=== PATIENT | female | born 1935 | race Caucasian/White ===

== ENCOUNTER 2023-08-10 11:19 | Emergency (ER) | payer MEDICARE, OTHER, SELFPAY ==
[2023-08-10] VITALS (11 sets, daily range): BP systolic 110–139; BP diastolic 68–90; PULSE 71–85; RESP 14–34; TEMP 36.7; O2SAT 95–96
--- NOTE | 2023-08-10 11:35 | DI.RAD.S_ITS ---
PROCEDURE: XR CHEST 1V INDICATIONS: FREQUENT FALLS TECHNIQUE: One view of the chest was acquired. COMPARISON: [facility], CR, XR CHEST 1 VIEW, 07/25/2023, 14:30. FINDINGS: Surgical changes and devices: None. Lungs and pleura: Lungs are clear. Chronic emphysematous changes are seen. No pleural effusions or pneumothorax. Mediastinum: Tortuous thoracic aorta is seen. Heart size is enlarged. Bones and chest wall: Old healed right posterior lateral mid to lower rib fractures are again seen. No suspicious bony lesions. Overlying soft tissues appear unremarkable. IMPRESSION: No acute cardiopulmonary pathology. Dictated by: Suresh Cole M.D. on 08/10/2023 at 12:35 Approved by: Suresh Cole M.D. on 08/10/2023 at 12:38
--- NOTE | 2023-08-10 11:35 | DI.CT.S_ITS ---
PROCEDURE: CT CERVICAL SPINE WO CON INDICATIONS: FREQUENT FALLS TECHNIQUE: Noncontrast 3 mm thick sections acquired from the skull base to the T4 level. Sagittal and coronal reformats were then constructed. For radiation dose reduction, the following was used: automated exposure control, adjustment of mA and/or kV according to patient size. COMPARISON: [facility], CT, CT CERVICAL SPINE WITHOUT CONTRAST, 02/23/2022, 15:27. [facility], CT, CT CERVICAL SPINE WITHOUT CONTRAST, 02/25/2022, 16:45. FINDINGS: Image quality: Diagnostic. Patient motion is noted. Bones: Prior posterior fusion of cervical spine at C1 through C3 levels are seen. Healed old on toy fracture is seen with chronic appearing deformity. No gross hardware loosening or failure. No acute fracture or dislocation. Loss of disc height, degenerative endplate changes and bilateral uncovertebral hypertrophic changes are noted throughout cervical spine. Dorsal disc osteophyte complex formation at C3-4, C5-6 and C6-7 levels are seen causing [id number] central canal stenosis and mild bilateral neural foraminal narrowing. Partial bony fusion at C4-5 level is seen. Visualized superior ribs are intact. Soft tissues: Prevertebral soft tissues are normal in thickness. No paravertebral hematomas. No apical pneumothoraces. IMPRESSION: 1. No acute cervical spine fracture or dislocation. 2. Prior posterior fusion at C1 through C3 levels. No gross hardware loosening or failure. 3. Old healed odontoid fracture. Degenerative disc disease throughout cervical spine as above. Dictated by: Sruesh Cole M.D. on 08/10/2023 at 12:28 Approved by: Suresh Cole M.D. on 08/10/2023 at 12:31
--- NOTE | 2023-08-10 11:35 | DI.CT.S_ITS ---
PROCEDURE: CT HEAD/BRAIN WO CON INDICATIONS: FREQUENT FALLS TECHNIQUE: Noncontrast 4.5 mm thick angled axial sections acquired from the foramen magnum to the vertex, with coronal and sagittal reformats. For radiation dose reduction, the following was used: automated exposure control, adjustment of mA and/or kV according to patient size. COMPARISON: [facility], CT, CT HEAD WITHOUT CONTRAST, 02/23/2022, 15:27. [facility], CT, CT HEAD WITHOUT CONTRAST, 07/25/2023, 17:12. FINDINGS: Image quality: Diagnostic. CSF spaces: Basal cisterns are patent. No extra-axial fluid collections. The ventricles are symmetric in size and shape. Brain: No intracranial bleeds or masses. There is cerebral volume loss for age, with resultant ventricular and sulcal prominence. There are periventricular and deep white matter chronic small vessel ischemic changes. There is intracranial internal carotid artery atherosclerosis. Skull and face: Calvarium and visualized facial bones appear intact, without suspicious lesions. Sinuses: Visualized sinuses and mastoids are clear. IMPRESSION: 1. No acute intracranial pathology. No significant changes from previous study. Dictated by: Suresh Cole M.D. on 08/10/2023 at 12:32 Approved by: Suresh Cole M.D. on 08/10/2023 at 12:35
--- NOTE | 2023-08-10 11:37 | ED.BACK ---
HPI - Back Pain/Injury General Chief Complaint: Back Pain/Injury Stated Complaint: Fall T-7, Back Pain Time Seen by Provider: 08/10/23 11:20 Source: family and EMS History of Present Illness HPI Narrative: 88-year-old female with history of Parkinson's presents from home by EMS for medical evaluation. 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 Granddaughter states that patient was had a general decline in her medical status over the last several weeks. She was fallen at least once at home due to her deconditioning. She was apparently reporting pain to her care staff prior to calling EMS, but granddaughter states that patient was overall very stubborn and resistant to seeking medical care. Patient denying any complaints on my evaluation. When asked if she has any pain she states in her arm where the IV is. Related Data Home Medications Medication Instructions Recorded Confirmed carbidopa ER 23.75 mg-levodopa 95 ##0 02/15/17 mg capsule,extended release (Rytary) gabapentin 300 mg capsule 300 mg PO ##0 02/15/17 (Neurontin) Previous Rx's Medication Instructions Recorded estradiol 0.01% (0.1 mg/gram) 0 vaginal SEE INSTRUCTIONS #1 tube 02/15/17 vaginal cream (Estrace) [CMP ESTRIOL 0.05%] 0.5 gm vaginal SEE INSTRUCTIONS 03/14/17 ##30 sulfamethoxazole 800 1 tab PO Q12H #14 tabs 08/10/23 mg-trimethoprim 160 mg tablet Allergies Allergy/AdvReac Type Severity Reaction Status Date / Time alendronate sodium Allergy Unknown Verified 08/10/23 11:25 [From FOSAMAX] morphine Allergy Verified 08/10/23 11:25 Patient History Surgical History (Updated 06/26/17 @ 05:34 by Conversion Provider) History of hip replacement Family History (Updated 10/07/15 @ 00:00 by Conversion Provider) Child Age: 63 Healthy adult Child Age: 64 Healthy adult Sister Age: 91 Circulation problem Exam Initial Vital Signs Initial Vital Signs: Vital Signs Temperature 98.0 F 08/10/23 11:20 Pulse Rate 77 08/10/23 11:20 Respiratory Rate 14 08/10/23 11:20 Blood Pressure 119/77 08/10/23 11:20 Pulse Oximetry 96 08/10/23 11:20 Oxygen Delivery Method Room Air 08/10/23 11:20 Const: Awake, alert, frail Cardiac: regular rate, regular rhythm RESP: unlabored, clear bilaterally GI: Soft, nontender, nondistended MSK: Atraumatic, full range of motion, pulses equal Skin: Warm, Dry, intact, no rashes Neuro: AO x2, CN II-XII grossly intact, moves all extremities Course Orders Ordered: Discontinued Medications Trimethoprim/Sulfamethoxazole (Trimeth/Sulfa 160/800 (Ds) Tablet) 1 tab PO NOW ONE Stop: 08/10/23 15:20 Last Admin: 08/10/23 15:26 Dose: 1 tab Documented By: MECHELLE Vital Signs Vital signs: Vital Signs - 8 hr 08/10/23 11:20 08/10/23 11:24 08/10/23 11:24 Temperature 98.0 F Pulse Rate 77 78 Respiratory Rate 14 Blood Pressure 119/77 119/77 Pulse Oximetry 96 96 Oxygen Delivery Method Room Air 08/10/23 11:30 08/10/23 12:02 08/10/23 12:30 Temperature Pulse Rate 76 71 79 Respiratory Rate 20 23 Blood Pressure Pulse Oximetry 95 96 95 Oxygen Delivery Method 08/10/23 12:56 08/10/23 12:56 08/10/23 13:00 Temperature Pulse Rate 74 79 Respiratory Rate 28 H Blood Pressure 139/83 Pulse Oximetry 96 95 Oxygen Delivery Method 08/10/23 13:01 08/10/23 13:01 08/10/23 13:30 Temperature Pulse Rate 79 78 Respiratory Rate 20 34 H Blood Pressure 134/90 Pulse Oximetry 96 96 Oxygen Delivery Method Room Air MDM - Back Pain/Injury Differential Diagnosis Differential diagnosis: Likely lumbar radiculopathy, sciatica and strain of lumbar region Lab Data 08/10/23 11:36 08/10/23 11:36 Labs: Lab Results 08/10/23 08/10/23 Range/Units 11:36 14:44 WBC 9.2 (4.5-11.0) X10^3/uL RBC 4.06 (4.0-5.2) X10^6/uL Hgb 12.1 (12.0-16.0) g/dL Hct 36.7 (36-46) % MCV 90.6 (80-100) fL MCH 29.8 (26-34) PG MCHC 32.9 (30-36) % RDW 14.0 (11.6-14.8) % Plt Count 416 H (150-400) X10^3/uL Neut % (Auto) 72.5 (50-75) % Lymph % (Auto) 14.1 L (25-40) % Garrett % (Auto) 11.5 (3-14) % Eos % (Auto) 1.3 L (2-4) % Baso % (Auto) 0.6 (0-2) % Neut # (Auto) 6700 (7841-3944) /uL Lymph # (Auto) 1300 (6175-9133) /uL Garrett # (Auto) 1100 H (0-900) /uL Eos # (Auto) 100 (0-450) /uL Baso # (Auto) 100 (0-100) /uL Sodium 136 L (137-145) mmol/L Potassium 4.9 (3.4-5.1) mmol/L Chloride 106 (98-107) mmol/L Carbon Dioxide 26 (22-32) mmol/L BUN 26 H (7-17) mg/dL Creatinine 0.45 L (0.52-1.04) mg/dL Estimated GFR > 60 (>60) mL/min BUN/Creatinine Ratio 57.8 H (6-22) Glucose 89 (80-110) mg/dL Lactate 1.4 (0.7-2.1) mmol/L Calcium 8.7 (8.4-10.2) mg/dL Total Bilirubin 0.9 (0.2-1.3) mg/dL AST 19 (14-36) IU/L ALT 5 (<35) IU/L Alkaline Phosphatase 90 (38-126) U/L Total Protein 6.8 (6.3-8.2) g/dL Albumin 3.8 (3.5-5.0) g/dL Globulin 3.0 (1.7-4.1) g/dL Albumin/Globulin Ratio 1.3 (1.0-2.8) Urine Color Yellow Urine Appearance Clear Urine pH 6.5 (4.5-8.0) Ur Specific [place] 1.020 (1.000-1.035) Urine Protein Trace H (Negative) Urine Glucose (UA) Negative (Negative) g/dL Urine Ketones Trace H (NEGATIVE) Urine Occult Blood Negative (Negative) Urine Nitrate Positive H (Negative) Urine Bilirubin Negative (NEGATIVE) Urine Urobilinogen 0.2 (0.2) E.U./dL Ur Leukocyte Esterase Trace H (NEGATIVE) Urine RBC 0-1/hpf (0-5/HPF) Urine WBC 5-10/hpf H (0-5/HPF) Ur Squamous Epith Cells 0-1 /hpf (0-5/HPF) Urine Bacteria Many (>30) H (None) Ur Culture Indicated? Specimen cultured Vol Urine Centrifuged 10ml (spun) Imaging Data CT - cervical spine: Radiologist's Impression: PROCEDURE: CT CERVICAL SPINE WO CON INDICATIONS: FREQUENT FALLS TECHNIQUE: Noncontrast 3 mm thick sections acquired from the skull base to the T4 level. Sagittal and coronal reformats were then constructed. For radiation dose reduction, the following was used: automated exposure control, adjustment of mA and/or kV according to patient size. COMPARISON: [facility], CT, CT CERVICAL SPINE WITHOUT CONTRAST, 02/23/2022, 15:27. [facility], CT, CT CERVICAL SPINE WITHOUT CONTRAST, 02/25/2022, 16:45. FINDINGS: Image quality: Diagnostic. Patient motion is noted. Bones: Prior posterior fusion of cervical spine at C1 through C3 levels are seen. Healed old on toy fracture is seen with chronic appearing deformity. No gross hardware loosening or failure. No acute fracture or dislocation. Loss of disc height, degenerative endplate changes and bilateral uncovertebral hypertrophic changes are noted throughout cervical spine. Dorsal disc osteophyte complex formation at C3-4, C5-6 and C6-7 levels are seen causing [id number] central canal stenosis and mild bilateral neural foraminal narrowing. Partial bony fusion at C4-5 level is seen. Visualized superior ribs are intact. Soft tissues: Prevertebral soft tissues are normal in thickness. No paravertebral hematomas. No apical pneumothoraces. IMPRESSION: 1. No acute cervical spine fracture or dislocation. 2. Prior posterior fusion at C1 through C3 levels. No gross hardware loosening or failure. 3. Old healed odontoid fracture. Degenerative disc disease throughout cervical spine as above. Dictated by: Suresh Cole M.D. on 08/10/2023 at 12:28 Approved by: Suresh Cole M.D. on 08/10/2023 at 12:31 Chest x-ray: Radiologist's Impression: PROCEDURE: XR CHEST 1V INDICATIONS: FREQUENT FALLS TECHNIQUE: One view of the chest was acquired. COMPARISON: [facility], CR, XR CHEST 1 VIEW, 07/25/2023, 14:30. FINDINGS: Surgical changes and devices: None. Lungs and pleura: Lungs are clear. Chronic emphysematous changes are seen. No pleural effusions or pneumothorax. Mediastinum: Tortuous thoracic aorta is seen. Heart size is enlarged. Bones and chest wall: Old healed right posterior lateral mid to lower rib fractures are again seen. No suspicious bony lesions. Overlying soft tissues appear unremarkable. IMPRESSION: No acute cardiopulmonary pathology. Dictated by: Suresh Cole M.D. on 08/10/2023 at 12:35 Approved by: Suresh Cole M.D. on 08/10/2023 at 12:38 CT scan - head: Radiologist's Impression: PROCEDURE: CT HEAD/BRAIN WO CON INDICATIONS: FREQUENT FALLS TECHNIQUE: Noncontrast 4.5 mm thick angled axial sections acquired from the foramen magnum to the vertex, with coronal and sagittal reformats. For radiation dose reduction, the following was used: automated exposure control, adjustment of mA and/or kV according to patient size. COMPARISON: [facility], CT, CT HEAD WITHOUT CONTRAST, 02/23/2022, 15:27. [facility], CT, CT HEAD WITHOUT CONTRAST, 07/25/2023, 17:12. FINDINGS: Image quality: Diagnostic. CSF spaces: Basal cisterns are patent. No extra-axial fluid collections. The ventricles are symmetric in size and shape. Brain: No intracranial bleeds or masses. There is cerebral volume loss for age, with resultant ventricular and sulcal prominence. There are periventricular and deep white matter chronic small vessel ischemic changes. There is intracranial internal carotid artery atherosclerosis. Skull and face: Calvarium and visualized facial bones appear intact, without suspicious lesions. Sinuses: Visualized sinuses and mastoids are clear. IMPRESSION: 1. No acute intracranial pathology. No significant changes from previous study. Dictated by: Suresh Cole M.D. on 08/10/2023 at 12:32 Approved by: Suresh Cole M.D. on 08/10/2023 at 12:35 [facility] Narrative Medical decision making narrative: Chronically unwell appearing patient presenting for generalized decline in medical status over the last several weeks. They state that they reported ?worsening pain? as the reason for calling 911, however on my exam patient has no reproducible tenderness to palpation and is currently denying any complaints other than generalized discomfort from her IV site. Laboratory work is reviewed, no significant abnormalities identified. WBC count 9.2, hemoglobin 12.1, platelet count 416, sodium 136, potassium 4.9, creatinine 0.45, normal liver enzymes. Patient did have nitrites and bacteria in her urine, we will treat empirically with antibiotics. Nursing staff offered for family to speak to social work as they report frustration with the patient's decline in functionality, however there is resistance from the patient's ongoing into skilled care and they are not ready to have this decision yet. They gave nursing staff their phone number to reach out to at a later date. Discharge Plan Departure Patient Disposition: Home Clinical Impression: Acute UTI Instructions: DI for Urinary Tract Infection (UTI) Activity Restrictions/Additional Instructions: Finish all of your antibiotics as prescribed. Follow up with your primary care doctor Prescriptions: New sulfamethoxazole-trimethoprim 800-160 mg tablet 1 tab PO Q12H Qty: 14 0RF No Action carbidopa-levodopa [Rytary] 23.75 MG/95 MG capsule, extended release Qty: 0 gabapentin [Neurontin] 300 MG capsule 300 mg PO Qty: 0 estradiol [Estrace] 0.01 % cream 0 Vaginal SEE INSTRUCTIONS Qty: 1 1RF [CMP ESTRIOL 0.05%] 0.5 gm Vaginal SEE INSTRUCTIONS Qty: 30 PRNRF Referrals: Althea Clarke MD [Physician] - Stand Alone Forms: Patient Portal/API
[2023-08-10 11:55] LABS: Add Manual Diff / Slide Review NO; Basophils Absolute Auto 100 /uL (0-100); Basophils Percent Auto 0.6 % (0-2); Eosinophils Absolute Auto 100 /uL (0-450); Eosinophils Percent Auto 1.3 % (2-4); Hematocrit 36.7 % (36-46); Hemoglobin 12.1 g/dL (12.0-16.0); Lymphocytes Absolute Auto 1300 /uL (1100-4500); Lymphocytes Percent Auto 14.1 % (25-40); Mean Corpuscular HGB Conc 32.9 % (30-36); Mean Corpuscular Hemoglobin 29.8 PG (26-34); Mean Corpuscular Volume 90.6 fL (80-100); Monocytes Absolute Auto 1100 /uL (0-900); Monocytes Percent Auto 11.5 % (3-14); Neutrophils Absolute Auto 6700 /uL (1500-7000); Neutrophils Percent Auto 72.5 % (50-75); Platelet Count 416 X10^3/uL (150-400); Red Blood Cell Count 4.06 X10^6/uL (4.0-5.2); White Blood Cell Count 9.2 X10^3/uL (4.5-11.0)
[2023-08-10 12:00] LABS: Lactate (Lactic Acid) 1.4 mmol/L (0.7-2.1)
[2023-08-10 12:02] LABS: Alanine Aminotransferase 5 IU/L (<35); Albumin 3.8 g/dL (3.5-5.0); Albumin Globulin Ratio 1.3 (1.0-2.8); Alkaline Phosphatase 90 U/L (38-126); Aspartate Aminotransferase 19 IU/L (14-36); BUN Creatinine Ratio 57.8 (6-22); Bilirubin Total 0.9 mg/dL (0.2-1.3); Blood Urea Nitrogen 26 mg/dL (7-17); Calcium 8.7 mg/dL (8.4-10.2); Carbon Dioxide 26 mmol/L (22-32); Chloride 106 mmol/L (98-107); Estimated Glomerular Filt Rate > 60 mL/min (>60); Glucose 89 mg/dL (80-110); HEMOLYSIS 39 (0-50); Potassium 4.9 mmol/L (3.4-5.1); Sodium 136 mmol/L (137-145); Total Protein 6.8 g/dL (6.3-8.2)
--- NOTE | 2023-08-10 13:31 | PC.NURSE ---
pt trying to get out of bed. moving all over. emotional support. daughter at bedside. gave patient her parkinsons meds
[2023-08-10 14:57] LABS: Appearance Urine UA CLEAR; Bilirubin Urine UA NEGATIVE (NEGATIVE); Color Urine UA YELLOW; Glucose Urine UA NEGATIVE (Negative); Ketones Urine UA TRACE (NEGATIVE); Leukocyte Esterase Urine UA TRACE (NEGATIVE); Nitrite Urine UA POSITIVE (Negative); Occult Blood Urine UA NEGATIVE (Negative); Protein Urine UA TRACE (Negative); Urobilinogen Urine UA 0.2 E.U./dL (0.2)
[2023-08-10 15:02] LABS: pH Urine UA 6.5 (4.5-8.0)
[2023-08-10 15:09] LABS: Bacteria Urine Many (>30); Culture Indicated Urine Specimen Cultured; RBC Urine 0-1/HPF (0-5/HPF); Squamous Epithelial Cell Urine 0-1 /HPF (0-5/HPF); Urine Volume 10mL (spun); WBC Urine 5-10/HPF (0-5/HPF)
[2023-08-10] MEDS: TRIMETH/SULFA 160/800 (DS) TABLET 1 TAB PO (15:26)
--- NOTE | 2023-08-13 18:32 | CM.SWNOTE ---
ED [employer]ER Note: [employer]ER [employer] INST[employer]ER was consulted to call daughter, Lanette, at her request to discuss placement for higher level of care for mother. [employer]ER AND INSTALLER called Lanette (ph#[phone]) multiple times over the weekend, no answer. B[employer] DEL[employer]ER AND INST[employer]ER left a message asking to return call if pt's daughter has any questions and that B[employer] VA[employer] DEL[employer]ER [employer] INSTALLER would like to connect her with Healthcare Logistics Coordinator, Jasmin Delatorre RN, from [facility]. CIPRIANO Francisco
== END 2023-08-10 15:38 | disposition home or self-care (01) ==
PROVIDERS: Emergency Provider Emergency Medicine; PCP Internal Medicine Geriatric Medicine; Referring Provider Emergency Medicine
DX: N39.0 Urinary tract infection, site not specified (principal); M54.9 Dorsalgia, unspecified; W19.XXXA Unspecified fall, initial encounter; R29.6 Repeated falls; G20.A1 Parkinson's disease without dyskinesia, without mention of fluctuations; F02.80 Dementia in other diseases classified elsewhere, unspecified severity, without behavioral disturbance, psychotic disturbance, mood disturbance, and anxiety
CPT/HCPCS: 36415; 51701; 51798; 70450; 71045; 72125; 80053; 81001; 83605; 85025; 87077; 87086; 87186; 99284